=== PATIENT | male | born 1960 | race African-American/Black ===

== ENCOUNTER 2019-01-08 20:18 | Emergency (ER) | payer BC, OTHER ==
[~2019-01-08] VITALS: Ht 180.3 cm; Wt 90.7 kg
[2019-01-08 23:02] LABS: HEMATOCRIT 32.9 % (42.0-52.0); HEMOGLOBIN 10.9 gm/dL (14.0-18.0); MCH 28.8 pg (26.0-34.0); MCHC 33.3 g/dL (28.0-37.0); MCV 86.6 fL (80.0-100.0); PLATELET COUNT 161 thou/uL (150-400); RDW 13.8 % (10.5-14.5); WBC 3.5 thou/uL (4.0-11.0)
[2019-01-08 23:06] LABS: ANION GAP 12 mmol/L (7-16); BUN 41 mg/dL (7-18); CALCIUM 8.2 mg/dL (8.5-10.1); CHLORIDE 104 mmol/L (98-107); CO2 19 mmol/L (21-32); CREATININE 4.3 mg/dL (0.7-1.3); GLUCOSE 151 mg/dL (74-106); POTASSIUM 4.9 mmol/L (3.5-5.1); SODIUM 135 mmol/L (136-145)
[2019-01-08 23:16] LABS: ALBUMIN 3.5 g/dL (3.4-5.0); LIPASE 134 U/L (73-393); SGOT 32 U/L (15-37); SGPT 18 U/L (30-65); TOTAL BILIRUBIN 0.5 mg/dL (<0.1-1.0); TOTAL PROTEIN 8.7 g/dL (6.4-8.2); TROPONIN-I <0.06 ng/mL (<0.06)
[2019-01-08] MEDS ORDERED: LEVO-T25 MCG PO (23:50)
[2019-01-08] MEDS ORDERED: HYDRALAZINE HC100 MG PO (23:52)
[2019-01-08] MEDS ORDERED: SODIUM BICARBO454 GM (23:52)
[2019-01-08] MEDS ORDERED: ASPIRIN EC81 M1 PO (23:53)
[2019-01-08] MEDS ORDERED: COREG25 M1 PO (23:53)
[2019-01-08] MEDS ORDERED: SENNA PLUS TAB1 EACH PO (23:53)
[2019-01-08] MEDS ORDERED: NORVASC 2.5 MG2.5 M1 PO (23:54)
[2019-01-08] MEDS ORDERED: FOLIC ACID1 MG PO (23:54)
[2019-01-08] MEDS ORDERED: ATORVASTATIN CA10 MG PO (23:57)
[2019-01-09 00:06] LABS: ABSOLUTE NEUTROPHILS 2.3 thou/uL (1.4-8.2)
[2019-01-09 00:07] LABS: PLATELET ESTIMATE NORMAL
[2019-01-09 00:27] LABS: URINE BILIRUBIN NEGATIVE (Negative); URINE BLOOD 1+ (Negative); URINE CLARITY CLEAR; URINE COLOR YELLOW; URINE GLUCOSE-RANDOM* NEGATIVE (Negative); URINE KETONES NEGATIVE (Negative); URINE LEUKOCYTES-REFLEX NEGATIVE (Negative); URINE NITRITE-REFLEX NEGATIVE (Negative); URINE PROTEIN (DIPSTICK) 2+ (Negative); URINE UROBILINOGEN 0.2 E.U./dl (0.2-1.0)
[2019-01-09 00:42] LABS: BACTERIA-REFLEX None Seen /HPF (None Seen); CASTS None Seen /LPF (None Seen); CRYSTALS None Seen /LPF (None Seen); MUCUS None Seen strn/LPF (None Seen); SQUAMOUS None Seen /LPF (0-3); URINE RBC 0-2 Rare /HPF (0-2); URINE WBC-REFLEX None Seen /HPF (0-5)
[2019-01-09 03:25] VITALS: BP 136/80
--- NOTE | 2019-01-09 08:05 | EKG ---
[address] [address] [place] [address] ELECTROCARDIOGRAM REPORT Name: JIMMY SANDERSANYI Berry [id number] Admission: 01/08/19 Attend Phys: Discharge: 01/09/19 Date of : 62 Report #: [id number] THIS REPORT FOR: //name// [facility] ED Test Date: 2019-01-08 Test Time: 22:58:36 Pat Name: LIZY SANDERS Department: Room: Gender: M [employer]: TATI : 1960 Requested By: Rodrick Barcenas Order Number: [id number] MD: Daren Arredondo Measurements Intervals Ault Rate: 83 P: 30 MD: 137 QRS: -2 QRSD: 113 T: 116 QT: 393 QTc: 462 Interpretive Statements Sinus rhythm Poor R wave progression Baseline wander in lead(s) II,III,aVF No previous ECG available for comparison Electronically Signed On 01-09-2019 8:05:36 CDT by Daren Arredondo [email or web address] <ELECTRONICALLY SIGNED> By: Daren Arredondo MD, [facility] 01/09/19 [id number] Daren Arredondo MD, FACC /EPI
== END 2019-01-09 03:26 | disposition short-term general hospital (02) ==
LOC: ER 20:18
PROVIDERS: Emergency Medicine
DX: R10.84 Generalized abdominal pain (principal); R91.1 Solitary pulmonary nodule; R11.2 Nausea with vomiting, unspecified; I12.9 Hypertensive chronic kidney disease with stage 1 through stage 4 chronic kidney disease, or unspecified chronic kidney disease; E11.22 Type 2 diabetes mellitus with diabetic chronic kidney disease; N18.9 Chronic kidney disease, unspecified; Z89.421 Acquired absence of other right toe(s)